=== PATIENT | male | born 1990 | race Caucasian/White ===

== ENCOUNTER 2017-10-14 16:06 | Emergency (ER) | payer SELFPAY | END 2017-10-14 19:11 | disposition home or self-care (01) | LOC: ERS 16:06 | DX: S61.411A Laceration without foreign body of right hand, initial encounter (principal); F17.210 Nicotine dependence, cigarettes, uncomplicated; I34.1 Nonrheumatic mitral (valve) prolapse; I10 Essential (primary) hypertension; W25.XXXA Contact with sharp glass, initial encounter | CPT/HCPCS: 99283 ==

== ENCOUNTER 2017-10-15 18:13 | Emergency (ER) | payer SELFPAY ==
--- NOTE | 2017-10-15 20:17 | RAD ---
THREE VIEWS OF THE RIGHT HAND 10/15/17 COMPARISON: 10/01/17 HISTORY: Injury. FINDINGS: An old fracture fragment is noted along the medial aspect of the distal radius. No displaced fracture or evidence of dislocation is appreciated. IMPRESSION: No acute findings. POS: VIKI
[2017-10-15] MEDS ORDERED: Acetaminophen/Codeine 30-300mg Tablet ONE (20:18)
[2017-10-15] MEDS ORDERED: Ibuprofen 800 MG TAB ONE (20:18)
== END 2017-10-15 20:22 | disposition home or self-care (01) ==
LOC: ERS 18:13
DX: S69.91XA Unspecified injury of right wrist, hand and finger(s), initial encounter (principal); I10 Essential (primary) hypertension; F17.210 Nicotine dependence, cigarettes, uncomplicated; W22.8XXA Striking against or struck by other objects, initial encounter

== ENCOUNTER 2017-10-19 11:25 | Outpatient (CLI) | payer SELFPAY ==
[2017-10-19 12:59] LABS: Hemoglobin 13.9 g/dL (14.0-18.0); Mean Corpuscular HGB CONC 31.9 g/dL (32.0-36.0); Mean Corpuscular Volume 91.1 fl (80.0-94.0); Mean Platelet Volume 6.2 fL (7.4-10.4); Platelet Count 311 thou/uL (130-400); RBC Distribution Width 11.5 % (11.5-14.5); White Blood Cell (WBC) Count 10.9 thou/uL (4.8-10.8)
== END 2017-10-19 11:26 | disposition home or self-care (01) ==
LOC: LABBT 11:25
PROVIDERS: ATTEND Orthopaedic Surgery Hand Surgery
DX: Z01.812 Encounter for preprocedural laboratory examination (principal); S66.529A Laceration of intrinsic muscle, fascia and tendon of unspecified finger at wrist and hand level, initial encounter
CPT/HCPCS: 85027

== ENCOUNTER 2017-10-20 06:51 | Day surgery (SDC) | payer SELFPAY ==
[2017-10-19 12:23] VITALS: BMI 25.0
[2017-10-20] MEDS ORDERED: CEFAZOLIN/Water 2 GM/20 ML SYRINGE ONE (06:59)
[2017-10-20] MEDS ORDERED: Midazolam HCl 2 mg/2 ml Vial ONE (07:15)
[2017-10-20] MEDS ORDERED: Fentanyl 100 MCG/2 ML VIAL ONE ×3 (07:15→09:16)
[2017-10-20] MEDS ORDERED: Bupivacaine 0.5% 10 ML VIAL ONE (07:31)
[2017-10-20] MEDS ORDERED: Bacitracin Zinc Ointment 30 gm TUBE ONE (07:31)
[2017-10-20] MEDS ORDERED: Sodium Chloride 0.9% 10 ML ONE (07:31)
[2017-10-20] MEDS ORDERED: Betamet Acet/Betamet Na Ph 30 MG/5 ML VIAL ONE (07:33)
[2017-10-20] MEDS ORDERED: Ketorolac Tromethamine 30 MG/ML VIAL ONE (09:01)
--- NOTE | 2017-10-20 09:22 | OP ---
DATE OF PROCEDURE: 10/20/2017 PREOPERATIVE DIAGNOSES: 1. Extensor tendon laceration with possible superficial ulnar nerve laceration right small finger do rsal, only a 4 mm retinaculum only oblique laceration, seen with dissection today and exploration. 2. After neuroplasty of all branches of his ulnar nerve none were cut throughout the entire area of the multiple glass incisions. PROCEDURE PERFORMED: 1. Neuroplasty superficial ulnar nerve, right upper extremity. 2. Right small finger retinaculum repair. SURGEON: Judson Trevizo M.D. TOURNIQUET TIME: 11 minutes. BLOOD LOSS: 10 mL. INJECTABLE: 10 mL 0.5% Marcaine. DESCRIPTION OF PROCEDURE: After successful general LMA technique the limb was prepped and draped. T he patient then had the timeout accomplished, we outlined incision along zig-zag line because he had 3 transverse incisions incorporated into the zag or area parallel to the wrist the transverse incisio ns. After exsanguinating the limb and inflating tourniquet 250 mmHg pressure we did enter these inci sions, we excised any skin that was hypertrophic or scarred including the very distal incision and th en dissected this down to the extensive retinaculum. There was marked amount of thickening over the retinaculum in the area where we thought he might have had a tear and we dissected through and found a 4 mm slightly oblique tear completely ulnar to the main tendon on the retinaculum of the small fing er side on the ulnar side. We then repaired this with a 5-0 Prolene x2 [id number] stitches. Th en, there was no lag, there was no other lacerations seen. No joint involvement. We then did a neur oplasty of all the branches of the superficial ulnar nerve out to the level beyond the visible lacera tions and there was no nerve tear or neuroma or laceration. We deflated the tourniquet. We maintained hemostasis. We irrigated the wound, we placed betamethaso ne along the nerve in the area of the neuroplasty, then we obtained hemostasis, closed the wound with interrupted 4-0 nylon in a simple pattern, injected with 10 mL 0.5 Marcaine, placed a bulky dressing and a splint to the level of the middle of the proximal phalanx. The patient left the operating renea m without evidence of anesthetic or operative complication.
[2017-10-20] MEDS ORDERED: HYDROcodone/Acetaminophen 5/325 mg Tablet ONE (09:56)
== END 2017-10-20 10:15 | disposition home or self-care (01) ==
LOC: SDC 06:51
PROVIDERS: ATTEND Orthopaedic Surgery Hand Surgery
PROC: 01Q40ZZ Repair Ulnar Nerve, Open Approach (ICD-10-PCS; principal; 2017-10-20)
PROC: 0LQ70ZZ Repair Right Hand Tendon, Open Approach (ICD-10-PCS; principal; 2017-10-20)
DX: S66.326A Laceration of extensor muscle, fascia and tendon of right little finger at wrist and hand level, initial encounter (principal); S64.01XA Injury of ulnar nerve at wrist and hand level of right arm, initial encounter
CPT/HCPCS: A4216; J0702; J1885; J2250; J3010; J3490

== ENCOUNTER 2018-01-23 19:43 | Emergency (ER) | payer SELFPAY ==
[2018-01-23] MEDS ORDERED: Fluorescein Opthalmic Strip ONE (20:07)
[2018-01-23] MEDS ORDERED: Proparacaine 0.5% Opth 15 ML BOT ONE (20:08)
== END 2018-01-23 21:07 | disposition home or self-care (01) ==
LOC: ERS 19:43
DX: H16.001 Unspecified corneal ulcer, right eye (principal); I10 Essential (primary) hypertension; F17.210 Nicotine dependence, cigarettes, uncomplicated; I05.9 Rheumatic mitral valve disease, unspecified
CPT/HCPCS: 99283

== ENCOUNTER 2018-10-08 11:23 | Emergency (ER) | payer SELFPAY ==
--- NOTE | 2018-10-08 12:17 | RAD ---
3 VIEWS RIGHT HAND: Date: 10/08/18 COMPARISON: 10/15/17. HISTORY: Right fifth digit swelling and erythema. FINDINGS: Three views of the right hand show no evidence of acute fracture or dislocation. Mild soft tissue swe lling is seen in the PIP joint of the small finger. No underlying osseous erosions or radiopaque fore ign bodies are seen. IMPRESSION: Unremarkable exam. POS: C
[2018-10-08] MEDS ORDERED: Adacel (T-DAP) 0.5 ML SYRINGE ONE (12:22)
[2018-10-08] MEDS ORDERED: Proparacaine 0.5% Opth 15 ML BOT ONE ×2 (12:22→12:30)
[2018-10-08] MEDS ORDERED: Fluorescein Opthalmic Strip ONE ×2 (12:22→12:30)
[2018-10-08] MEDS ORDERED: HYDROcodone/Acetaminophen 5/325 mg Tablet ONE (13:06)
== END 2018-10-08 17:00 | disposition home or self-care (01) ==
LOC: ERS 11:23
DX: S61.451A Open bite of right hand, initial encounter (principal); T15.02XA Foreign body in cornea, left eye, initial encounter; I10 Essential (primary) hypertension; F17.210 Nicotine dependence, cigarettes, uncomplicated; W54.0XXA Bitten by dog, initial encounter
CPT/HCPCS: 90471; 90715